=== PATIENT | female | born 1985 | race Caucasian/White ===

== ENCOUNTER → 2017-10-03 | Outpatient (CLI) | payer BC ==
--- NOTE | 2017-10-04 10:54 | MM ---
Reason for exam: clinical finding. Baseline mammogram. Physical Findings: Nurse did not find any significant physical abnormalities on exam. MG 3D Diag Mammo W/Cad MARTÍNEZ Bilateral CC and MLO view(s) were taken. The breast tissue is heterogeneously dense. This may lower the sensitivity of mammography. There is no discrete abnormality. Intramammary lymph node posterior right upper outer quadrant. These results were verbally communicated with the patient and result sheet given to the patient on 10/03/17. ASSESSMENT: Incomplete: need additional imaging evaluation, BI-RAD 0 RECOMMENDATION: Ultrasound of both breasts. right entire breast left targeted to the dimpling
--- NOTE | 2017-10-04 10:56 | USB ---
Reason for exam: additional evaluation requested from abnormal screening. US Breast Limited BILAT Right complete breast ultrasound includes all four quadrants, the retroareolar region and axilla. Finding demonstrates no cystic or solid lesion seen. Left limited breast ultrasound including focal area of concern, retroareolar and axilla demonstrates no cystic or solid lesion seen. Entire right breast scanned. Left breast scanned subareolar and periareolar including the 11-12 o'clock area of periareolar dimpling. These results were verbally communicated with the patient and result sheet given to the patient on 10/03/17. ASSESSMENT: Negative, BI-RAD 1 RECOMMENDATION: Routine screening mammogram of both breasts at age 41. (unless clinical indication to start sooner) Manage on a clinical basis with regard to right nipple discharge, dimpling bilaterally, and bilateral discomfort.
== END | disposition home or self-care (01) ==
LOC: RADMAMWWP 09:54
PROVIDERS: ATTEND Family Medicine
DX: R92.8 Other abnormal and inconclusive findings on diagnostic imaging of breast (principal)
CPT/HCPCS: 77062; 77066